=== PATIENT | male | born 1980 ===

== ENCOUNTER 2025-04-11 18:36 | Inpatient (IN) | payer SELFPAY ==
[~2025-04-11 18:36] MED LIST: Iopamidol-370 76% 500 ML MDV (1 ML CHARGE) ONE
[2025-04-11] MEDS ORDERED: KETAMINE 100 MG/ML (5ML VIAL) ONE (18:48)
[2025-04-11] MEDS ORDERED: Propofol 1,000 MG/100 ML VIAL IV ONE (18:54)
[2025-04-11] MEDS ORDERED: fentaNYL Citrate-0.9 % NaCl/PF 100 ML ONE (18:55)
[2025-04-11] MEDS ORDERED: Fentanyl 100 MCG/2 ML VIAL ONE (18:55)
[2025-04-11] MEDS ORDERED: Calcium Chloride 1 GM/10 ML Abboject SYRINGE ONE ×2 (19:10→20:10)
[2025-04-11 19:13] LABS: #Basophils 0.05 10x3/uL (0.0-0.2); #Eosinophils 1.02 10x3/uL (0.0-0.7); #Monocytes 0.37 10x3/uL (0.11-0.59); %Basophils 0.6 % (0.0-1.0); %Lymphocytes 42.6 % (21.0-51.0); %Monocytes 4.4 % (0.0-10.0); Hematocrit 35.2 % (42.0-52.0); Hemoglobin 11.6 g/dL (14.0-18.0); Mean Corpuscular Hemoglobin 30.1 pg (27.0-31.0); Mean Corpuscular Volume 91.4 fL (78.0-98.0); Mean Platelet Volume 8.7 fL (7.4-10.4); Platelet Count 284 10x3/uL (130-400); RBC Distribution Width 13.3 % (11.5-14.5); Red Blood Cell (RBC) Count 3.85 mill/uL (4.70-6.10); White Blood Cell (WBC) Count 8.49 10x3/uL (4.8-10.8)
[2025-04-11 19:29] LABS: INR-International Normal Ratio 1.1; Prothrombin Time 14.4 sec (12.0-14.7)
[2025-04-11 19:32] LABS: Alcohol Less than 10.0 mg/dL (Less than 10); Troponin I Less than 0.010 ng/mL (< 0.028)
[2025-04-11 19:35] LABS: ALT (SGPT) 10 U/L (Less than 45); AST (SGOT) 21 U/L (11-34); Albumin 3.2 g/dL (3.1-4.5); Alkaline Phosphatase 69 U/L (40-110); Anion Gap 18 mmol/L (10-20); BUN (Urea Nitrogen) 16 mg/dL (8.4-25.7); Bilirubin, Total 0.3 mg/dL (0.3-1.2); Calc. Creatinine Clearance 0 mL/min (70-130); Calcium 7.7 mg/dL (7.8-10.44); Carbon Dioxide 13 mmol/L (23-31); Chloride 111 mmol/L (98-107); Estimated GFR 36; Globulin 2.5 g/dL (2.4-3.5); Glucose 238 mg/dL (83-110); Lipase 32 U/L (8-78); Potassium 3.6 mmol/L (3.5-5.1); Protein, Total 5.7 g/dL (5.8-8.1); Sodium 138 mmol/L (136-145)
[2025-04-11] MEDS ORDERED: fentaNYL PF 100 MCG/2 ML SYRINGE ONE (19:42)
[2025-04-11] MEDS ORDERED: Heparin 10,000 UNITS/ 10 ML VIAL ONE (19:56)
[2025-04-11] MEDS ORDERED: Tranexamic Acid 1,000 MG/10 ML VIAL ONE (20:10)
[2025-04-11] MEDS ORDERED: Albumin 5% 500 ML ONE (20:16)
[2025-04-11] MEDS ORDERED: PROPOFOL 20 ML ONE (20:17)
[2025-04-11] MEDS ORDERED: Rocuronium Bromide 10 MG/ML (10ML VIAL) ONE ×2 (20:35)
[2025-04-11] MEDS ORDERED: Dextrose 5% in Water 1,000 ML IV PRN (20:58)
[2025-04-11] MEDS ORDERED: Glucagon 1 MG/ML KIT IM PRN (20:58)
[2025-04-11] MEDS ORDERED: Dextrose 50% Abboject 50 ML SYRINGE SLOW IVP PRN (20:58)
[2025-04-11] MEDS ORDERED: Morphine 4 MG/ML VIAL SLOW IVP PRN (20:58)
[2025-04-11] MEDS ORDERED: Morphine 2 MG/ML VIAL SLOW IVP PRN (20:58)
[2025-04-11] MEDS: diphenhydrAMINE 50 MG/ML VIAL IVP SCH (22:14)
[2025-04-11] MEDS ORDERED: Ventilator Sedation Protocol 1 EACH FS SCH (22:15)
[2025-04-11] MEDS: fentaNYL Citrate-0.9 % NaCl/PF 100 ML IV SCH (22:20)
[2025-04-11] MEDS: Propofol 1,000 MG/100 ML VIAL IV PRN (22:20)
[2025-04-11] MEDS ORDERED: Propofol BOLUS 1,000 MG/100 ML VIAL IV PRN (22:30)
[2025-04-11] MEDS ORDERED: DISCONTINUE PREVIOUS NARCOTIC PAIN MEDICATIONS AND BENZODIAZEPINES FS SCH (22:30)
[2025-04-11] MEDS ORDERED: Fentanyl BOLUS 100 ML IVPB PRN (22:30)
[2025-04-11 22:34] LABS: #Basophils Less than 0.03 10x3/uL (0.0-0.2); #Eosinophils 0.04 10x3/uL (0.0-0.7); #Monocytes Less than 0.03 10x3/uL (0.11-0.59); #Neutrophils 2.15 10x3/uL (1.40-6.50); %Eosinophils 1.6 % (0.0-10.0); %Lymphocytes 11.6 % (21.0-51.0); %Monocytes 0.4 % (0.0-10.0); Hematocrit 41.4 % (42.0-52.0); Hemoglobin 13.9 g/dL (14.0-18.0); Mean Corpuscular HGB CONC 33.6 g/dL (32.0-36.0); Mean Corpuscular Hemoglobin 29.3 pg (27.0-31.0); Mean Corpuscular Volume 87.3 fL (78.0-98.0); Platelet Count 125 10x3/uL (130-400); RBC Distribution Width 14.5 % (11.5-14.5); Red Blood Cell (RBC) Count 4.74 mill/uL (4.70-6.10)
[2025-04-11 22:40] LABS: Platelet Count 124 10x3/uL (130-400)
[2025-04-11 22:46] LABS: Fibrinogen 444 mg/dL (253-463)
[2025-04-11 22:47] LABS: INR-International Normal Ratio 1.1; PTT 31.2 sec (22.9-36.1); Prothrombin Time 14.4 sec (12.0-14.7)
[2025-04-11 22:48] LABS: D-Dimer Test 1.09 mcg/mL (0.27-0.43)
[2025-04-11 22:51] LABS: Lactic Acid 3.37 mmol/L (0.50-2.20)
[2025-04-11 22:55] LABS: ALT (SGPT) 73 U/L (Less than 45); AST (SGOT) 95 U/L (11-34); Albumin 4.1 g/dL (3.1-4.5); Alkaline Phosphatase 75 U/L (40-110); Anion Gap 18 mmol/L (10-20); BUN (Urea Nitrogen) 13 mg/dL (8.4-25.7); Bilirubin, Total 1.7 mg/dL (0.3-1.2); Calc. Creatinine Clearance 0 mL/min (70-130); Calcium 8.8 mg/dL (7.8-10.44); Carbon Dioxide 21 mmol/L (23-31); Chloride 109 mmol/L (98-107); Estimated GFR 58; Glucose 168 mg/dL (83-110); Potassium 3.9 mmol/L (3.5-5.1); Protein, Total 7.1 g/dL (5.8-8.1); Sodium 144 mmol/L (136-145)
[2025-04-11] MEDS: Lorazepam 2 MG/ML VIAL SLOW IVP PRN (23:24)
[2025-04-11] MEDS: methylPREDNISolone Sod Succ 40 MG VIAL IVP SCH (23:24)
[2025-04-11] MEDS: fentaNYL Citrate-0.9 % NaCl/PF 100 ML ONE (23:30)
[2025-04-11] MEDS: diphenhydrAMINE 50 MG/ML VIAL ONE (23:30)
[2025-04-12] MEDS: Mupirocin 1 GM TUBE NASAL DECOLONIZATION TP SCH (00:24)
[2025-04-12] MEDS: Famotidine/PF 20 mg/2ml Vial SLOW IVP SCH (00:24)
[2025-04-12 00:32] LABS: Amphetamine Negative (Negative); Barbiturates Screen Negative (Negative); Benzodiazepine Screen Negative (Negative); Cocaine Metabolite Screen Negative (Negative); Methadone Negative (Negative); Methamphetamine Negative (Negative); Opiate Screen Negative (Negative); Oxycodone Screen Negative (Negative); Phencyclidine (PCP) Negative (Negative); THC/Cannabinoid Screen Negative (Negative); Tricyclic Screen Negative (Negative)
[2025-04-12] MEDS: Midazolam In 0.9 % NaCl/PF 100 ML IVPB SCH (01:05)
[2025-04-12 03:56] LABS: %Basophils 0.2 % (0.0-1.0); %Eosinophils 0.2 % (0.0-10.0); %Lymphocytes 3.6 % (21.0-51.0); %Monocytes 4.4 % (0.0-10.0); %Neutrophils 91.4 % (42.0-75.0); Hematocrit 44.3 % (42.0-52.0); Hemoglobin 15.1 g/dL (14.0-18.0); Mean Corpuscular HGB CONC 34.1 g/dL (32.0-36.0); Mean Platelet Volume 9.2 fL (7.4-10.4); Platelet Count 152 10x3/uL (130-400); RBC Distribution Width 14.6 % (11.5-14.5); Red Blood Cell (RBC) Count 5.21 mill/uL (4.70-6.10); White Blood Cell (WBC) Count 4.78 10x3/uL (4.8-10.8)
[2025-04-12 03:57] LABS: #Basophils Less than 0.03 10x3/uL (0.0-0.2); #Eosinophils Less than 0.03 10x3/uL (0.0-0.7); #Monocytes 0.21 10x3/uL (0.11-0.59); #Neutrophils 4.37 10x3/uL (1.40-6.50)
[2025-04-12 04:10] LABS: INR-International Normal Ratio 1.1; PTT 26.4 sec (22.9-36.1); Prothrombin Time 14.2 sec (12.0-14.7)
[2025-04-12 05:02] LABS: Lactic Acid 3.07 mmol/L (0.50-2.20)
[2025-04-12] MEDS: Piperacillin/Tazobactam 3.375 GM in Sodium Chloride 0.9% 100 ML IVPB SCH ×2 (05:05→07:45)
[2025-04-12 05:10] LABS: ALT (SGPT) 118 U/L (Less than 45); AST (SGOT) 184 U/L (11-34); Alkaline Phosphatase 71 U/L (40-110); Anion Gap 15 mmol/L (10-20); BUN (Urea Nitrogen) 16 mg/dL (8.9-20.6); Bilirubin, Total 2.5 mg/dL (0.3-1.2); Calc. Creatinine Clearance 106 mL/min (70-130); Calcium 8.9 mg/dL (7.8-10.44); Carbon Dioxide 25 mmol/L (22-29); Chloride 107 mmol/L (98-107); Estimated GFR 86; Globulin 3.1 g/dL (2.4-3.5); Glucose 103 mg/dL (70-105); Magnesium 1.5 mg/dL (1.6-2.6); Potassium 3.2 mmol/L (3.5-5.1); Protein, Total 7.1 g/dL (6.0-8.3); Sodium 144 mmol/L (136-145)
[2025-04-12 05:22] LABS: Phosphorus 1.2 mg/dL (2.5-4.5)
[2025-04-12] MEDS: Potassium Chloride 40 MEQ in Premix 1 BAG IVPB SCH (05:48)
[2025-04-12] MEDS: Magnesium Sulfate In Water 4 GM in Premix 1 BAG IVPB SCH (06:24)
[2025-04-12] MEDS: Sodium Phosphate 15 MMOL in Sodium Chloride 0.9% 250 ML 250 ML IVPB SCH (06:25)
[2025-04-12 06:40] LABS: Actual Bicarbonate (HCO3a) 22.5 mEq/L (22-28); Base Excess (BEa) -1.8 mEq/L (-2.0 to +3.0); CO2 Tension 37.1 mmHg (35.0-45.0); Calcium, Ionized (arterial) 1.12 mmol/L (1.12-1.30); Carboxyhemoglobin (COHb) 0.8 gm% (0.0-3.0); Hematocrit-ABG 45 % (42.0-52.0); Hemoglobin (Hb) 15.2 g/dL (14.0-18.0); O2 Tension (PaO2), arterial 237.9 mmHg (80.0-100.0); Potassium - ABG Lab 3.94 mmol/L (3.70-5.30)
[2025-04-12 06:50] LABS: Puncture Site Arterial Line
[2025-04-12] MEDS: Mupirocin 1 GM TUBE NASAL DECOLOIZATION TP SCH (07:44)
[2025-04-12] MEDS: Albumin 5% 250 ML ONE ×3 (13:11→18:43)
[2025-04-12] MEDS: Albumin 5% 25 GM (500 mL) BOT IVPB SCH (13:11)
[2025-04-12] MEDS: Sodium Chloride 0.9% 500 ML IV SCH (13:12)
[2025-04-12 13:32] LABS: ALT (SGPT) 113 U/L (Less than 45); AST (SGOT) 116 U/L (11-34); Albumin 3.6 g/dL (3.1-4.5); Alkaline Phosphatase 46 U/L (40-110); Anion Gap 12 mmol/L (10-20); BUN (Urea Nitrogen) 19 mg/dL (8.9-20.6); Bilirubin, Total 1.7 mg/dL (0.3-1.2); Calc. Creatinine Clearance 116 mL/min (70-130); Calcium 7.9 mg/dL (7.8-10.44); Carbon Dioxide 21 mmol/L (22-29); Chloride 111 mmol/L (98-107); Estimated GFR 95; Globulin 2.5 g/dL (2.4-3.5); Glucose 106 mg/dL (70-105); Potassium 3.9 mmol/L (3.5-5.1); Protein, Total 6.1 g/dL (6.0-8.3); Sodium 140 mmol/L (136-145)
[2025-04-12] MEDS: Acetaminophen 650 MG Suppository PR PRN (17:59)
[2025-04-12] MEDS: NOREPINEPHRINE 8 MG/250 ML-D5W 250 ML ONE (18:43)
[2025-04-12] MEDS: Albumin 5% 12.5 GM (250 mL) BOT IVPB SCH (18:43)
[2025-04-12] MEDS ORDERED: Vasopressin In 0.9 % NaCl 100 ML IV SCH (19:15)
[2025-04-12 19:36] LABS: Hematocrit 35.4 % (42.0-52.0); Hemoglobin 12.3 g/dL (14.0-18.0); Mean Corpuscular HGB CONC 34.7 g/dL (32.0-36.0); Mean Corpuscular Hemoglobin 29.5 pg (27.0-31.0); Mean Corpuscular Volume 84.9 fL (78.0-98.0); Mean Platelet Volume 9.8 fL (7.4-10.4); Platelet Count 147 10x3/uL (130-400); RBC Distribution Width 15.5 % (11.5-14.5); Red Blood Cell (RBC) Count 4.17 mill/uL (4.70-6.10); White Blood Cell (WBC) Count 6.09 10x3/uL (4.8-10.8)
[2025-04-12 19:57] LABS: Anisocytosis SLIGHT = 6-15 cells HPF (0-5); Band 36 % (5-11); Burr Cells SLIGHT = 2-5 cells HPF (0-1); Eosinophils 2 % (0-10); Lymphocytes 7 % (21-51); Monocytes 2 % (0-10); Neutrophil 53 % (42-75); Platelet Adequacy Comment Platelets Normal; Polychromasia SLIGHT = 2-3 cells HPF (0-2); Smudge Cells 3.9 %
[2025-04-13 00:10] LABS: ALT (SGPT) 127 U/L (Less than 45); AST (SGOT) 119 U/L (11-34); Albumin 3.5 g/dL (3.1-4.5); Alkaline Phosphatase 46 U/L (40-110); Anion Gap 10 mmol/L (10-20); BUN (Urea Nitrogen) 18 mg/dL (8.9-20.6); Bilirubin, Total 1.8 mg/dL (0.3-1.2); Calc. Creatinine Clearance 123 mL/min (70-130); Carbon Dioxide 21 mmol/L (22-29); Chloride 113 mmol/L (98-107); Estimated GFR 103; Globulin 2.5 g/dL (2.4-3.5); Glucose 106 mg/dL (70-105); Potassium 3.8 mmol/L (3.5-5.1); Sodium 140 mmol/L (136-145)
[2025-04-13 05:00] LABS: Hematocrit 39.3 % (42.0-52.0); Hemoglobin 13.5 g/dL (14.0-18.0); Mean Corpuscular HGB CONC 34.4 g/dL (32.0-36.0); Mean Corpuscular Hemoglobin 29.3 pg (27.0-31.0); Mean Corpuscular Volume 85.2 fL (78.0-98.0); Mean Platelet Volume 9.7 fL (7.4-10.4); Platelet Count 149 10x3/uL (130-400); RBC Distribution Width 15.5 % (11.5-14.5); Red Blood Cell (RBC) Count 4.61 mill/uL (4.70-6.10); White Blood Cell (WBC) Count 7.08 10x3/uL (4.8-10.8)
[2025-04-13 05:46] LABS: ALT (SGPT) 131 U/L (Less than 45); AST (SGOT) 112 U/L (11-34); Albumin 3.6 g/dL (3.1-4.5); Alkaline Phosphatase 50 U/L (40-110); Anion Gap 10 mmol/L (10-20); BUN (Urea Nitrogen) 17 mg/dL (8.9-20.6); Bilirubin, Total 1.8 mg/dL (0.3-1.2); Calc. Creatinine Clearance 128 mL/min (70-130); Calcium 8.6 mg/dL (7.8-10.44); Carbon Dioxide 21 mmol/L (22-29); Chloride 112 mmol/L (98-107); Estimated GFR 105; Globulin 2.9 g/dL (2.4-3.5); Glucose 126 mg/dL (70-105); Protein, Total 6.5 g/dL (6.0-8.3); Sodium 139 mmol/L (136-145)
[2025-04-13 07:01] LABS: Anisocytosis SLIGHT = 6-15 cells HPF (0-5); Band 53 % (5-11); Eosinophils 1 % (0-10); Lymphocytes 2 % (21-51); Macrocytosis SLIGHT = 6-15 cells HPF (0-5); Monocytes 5 % (0-10); Neutrophil 39 % (42-75); Platelet Adequacy Comment Platelets Normal
[2025-04-13] MEDS ORDERED: Rocuronium Bromide 10 MG/ML (10ML VIAL) ONE (12:43)
[2025-04-13] MEDS ORDERED: PHENYLEPHRINE-NS 100 MCG/ML 10 ML SYRINGE ONE (12:43)
[2025-04-13] MEDS ORDERED: PROPOFOL 20 ML ONE (12:43)
[2025-04-13] MEDS ORDERED: fentaNYL PF 100 MCG/2 ML SYRINGE ONE (12:43)
[2025-04-13] MEDS ORDERED: ePHEDrine Sulfate 50 MG/10 ML VIAL ONE (12:43)
[2025-04-13] MEDS: NOREPINEPHRINE 8 MG/250 ML-D5W 250 ML IVPB SCH (16:58)
[2025-04-14 04:49] LABS: Hematocrit 40.7 % (42.0-52.0); Hemoglobin 13.7 g/dL (14.0-18.0); Mean Corpuscular HGB CONC 33.7 g/dL (32.0-36.0); Mean Corpuscular Hemoglobin 29.3 pg (27.0-31.0); Mean Corpuscular Volume 87.2 fL (78.0-98.0); Mean Platelet Volume 9.7 fL (7.4-10.4); Platelet Count 162 10x3/uL (130-400); RBC Distribution Width 15.6 % (11.5-14.5); Red Blood Cell (RBC) Count 4.67 mill/uL (4.70-6.10); White Blood Cell (WBC) Count 5.85 10x3/uL (4.8-10.8)
[2025-04-14 05:01] LABS: ALT (SGPT) 87 U/L (Less than 45); AST (SGOT) 48 U/L (11-34); Alkaline Phosphatase 44 U/L (40-110); Anion Gap 11 mmol/L (10-20); BUN (Urea Nitrogen) 17 mg/dL (8.9-20.6); Calc. Creatinine Clearance 110 mL/min (70-130); Calcium 8.7 mg/dL (7.8-10.44); Carbon Dioxide 20 mmol/L (22-29); Chloride 114 mmol/L (98-107); Estimated GFR 88; Globulin 3.4 g/dL (2.4-3.5); Glucose 159 mg/dL (70-105); Potassium 4.5 mmol/L (3.5-5.1); Protein, Total 6.4 g/dL (6.0-8.3); Sodium 140 mmol/L (136-145)
[2025-04-14 06:16] LABS: Band 28 % (5-11); Burr Cells SLIGHT = 2-5 cells HPF (0-1); Lymphocytes 7 % (21-51); Monocytes 4 % (0-10); Neutrophil 61 % (42-75); Platelet Adequacy Comment Platelets Normal
[2025-04-14] MEDS: Enoxaparin 40 MG (0.4 mL) SYRINGE SC SCH (08:01)
[2025-04-14 10:31] VITALS: BMI 32.8
[2025-04-15 05:24] LABS: #Basophils Less than 0.03 10x3/uL (0.0-0.2); #Eosinophils Less than 0.03 10x3/uL (0.0-0.7); #Monocytes 0.39 10x3/uL (0.11-0.59); #Neutrophils 4.73 10x3/uL (1.40-6.50); %Eosinophils 0.2 % (0.0-10.0); %Lymphocytes 10.1 % (21.0-51.0); %Monocytes 6.8 % (0.0-10.0); %Neutrophils 82.2 % (42.0-75.0); Hematocrit 38.6 % (42.0-52.0); Hemoglobin 12.9 g/dL (14.0-18.0); Mean Corpuscular HGB CONC 33.4 g/dL (32.0-36.0); Mean Corpuscular Hemoglobin 29.5 pg (27.0-31.0); Mean Corpuscular Volume 88.1 fL (78.0-98.0); Mean Platelet Volume 9.8 fL (7.4-10.4); Platelet Count 172 10x3/uL (130-400); RBC Distribution Width 15.1 % (11.5-14.5); Red Blood Cell (RBC) Count 4.38 mill/uL (4.70-6.10); White Blood Cell (WBC) Count 5.75 10x3/uL (4.8-10.8)
[2025-04-15 05:39] LABS: Anion Gap 16 mmol/L (10-20); BUN (Urea Nitrogen) 24 mg/dL (8.9-20.6); Calc. Creatinine Clearance 129 mL/min (70-130); Carbon Dioxide 20 mmol/L (22-29); Chloride 111 mmol/L (98-107); Estimated GFR 109; Glucose 147 mg/dL (70-105); Potassium 4.3 mmol/L (3.5-5.1); Sodium 143 mmol/L (136-145)
[2025-04-15] MEDS: Dextrose 5%-Lactated Ringers 1,000 ML IV SCH (08:47)
[2025-04-15] MEDS ORDERED: Rocuronium Bromide 10 MG/ML (10ML VIAL) ONE ×2 (12:02→13:57)
[2025-04-15] MEDS ORDERED: PHENYLEPHRINE-NS 100 MCG/ML 10 ML SYRINGE ONE (12:02)
[2025-04-15] MEDS ORDERED: ePHEDrine Sulfate 50 MG/10 ML VIAL ONE (12:02)
[2025-04-15] MEDS ORDERED: Midazolam HCl 2 mg/2 ml Vial ONE (12:03)
[2025-04-15] MEDS ORDERED: PROPOFOL 20 ML ONE (12:03)
[2025-04-15] MEDS ORDERED: Ondansetron PF 4 MG/2 ML Vial ONE (12:49)
[2025-04-15] MEDS ORDERED: Dexamethasone 4 mg/ml Vial ONE (12:51)
[2025-04-15] MEDS ORDERED: CEFAZOLIN 1 GM VIAL ONE (12:55)
[2025-04-15] MEDS ORDERED: fentaNYL PF 100 MCG/2 ML SYRINGE ONE (13:04)
[2025-04-15] MEDS ORDERED: Dextrose 50% Abboject 50 ML SYRINGE SLOW IVP PRN (14:12)
[2025-04-15] MEDS ORDERED: Dextrose 5% in Water 1,000 ML IV PRN (14:12)
[2025-04-15] MEDS ORDERED: Glucagon 1 MG/ML KIT IM PRN (14:12)
[2025-04-15] MEDS ORDERED: Ondansetron PF 4 MG/2 ML Vial IVP PRN (14:12)
[2025-04-15] MEDS: D5 1/2 NS w/20 mEq KCL 1,000 ML IV SCH (15:53)
[2025-04-15] MEDS: Famotidine 20 MG TAB PO SCH (20:44)
[2025-04-15] MEDS: Docusate 100 MG CAP PO SCH (20:47)
[2025-04-16] MEDS: Dexmedetomidine In 0.9 % NaCl 100 ML IVPB SCH (01:23)
[2025-04-16 04:15] LABS: #Basophils Less than 0.03 10x3/uL (0.0-0.2); #Eosinophils Less than 0.03 10x3/uL (0.0-0.7); #Monocytes 0.45 10x3/uL (0.11-0.59); #Neutrophils 6.75 10x3/uL (1.40-6.50); %Basophils 0.1 % (0.0-1.0); %Lymphocytes 5.7 % (21.0-51.0); %Monocytes 5.8 % (0.0-10.0); %Neutrophils 87.4 % (42.0-75.0); Hematocrit 37.8 % (42.0-52.0); Hemoglobin 12.5 g/dL (14.0-18.0); Mean Corpuscular HGB CONC 33.1 g/dL (32.0-36.0); Mean Corpuscular Hemoglobin 29.2 pg (27.0-31.0); Mean Corpuscular Volume 88.3 fL (78.0-98.0); Mean Platelet Volume 9.2 fL (7.4-10.4); Platelet Count 193 10x3/uL (130-400); RBC Distribution Width 14.8 % (11.5-14.5); Red Blood Cell (RBC) Count 4.28 mill/uL (4.70-6.10); White Blood Cell (WBC) Count 7.73 10x3/uL (4.8-10.8)
[2025-04-16 05:24] LABS: Anion Gap 11 mmol/L (10-20); BUN (Urea Nitrogen) 20 mg/dL (8.9-20.6); Calc. Creatinine Clearance 145 mL/min (70-130); Carbon Dioxide 18 mmol/L (22-29); Chloride 114 mmol/L (98-107); Estimated GFR 113; Glucose 147 mg/dL (70-105); Potassium 4.4 mmol/L (3.5-5.1); Sodium 139 mmol/L (136-145)
[2025-04-16 06:08] LABS: Calcium 8.5 mg/dL (7.8-10.44)
[2025-04-16] MEDS: Enoxaparin 40 MG (0.4 mL) SYRINGE SC SCH (08:03)
[2025-04-16] MEDS: QUEtiapine 100 MG TAB PO SCH (09:19)
[2025-04-16] MEDS: Amlodipine 5 MG TAB PO SCH (16:57)
[2025-04-17 05:04] LABS: Hematocrit 40.3 % (42.0-52.0); Hemoglobin 13.4 g/dL (14.0-18.0); Mean Corpuscular HGB CONC 33.3 g/dL (32.0-36.0); Mean Corpuscular Hemoglobin 29.6 pg (27.0-31.0); Mean Platelet Volume 9.4 fL (7.4-10.4); Platelet Count 234 10x3/uL (130-400); RBC Distribution Width 13.6 % (11.5-14.5); Red Blood Cell (RBC) Count 4.53 mill/uL (4.70-6.10); White Blood Cell (WBC) Count 8.81 10x3/uL (4.8-10.8)
[2025-04-17 05:05] LABS: Anion Gap 14 mmol/L (10-20); BUN (Urea Nitrogen) 15 mg/dL (8.9-20.6); Calc. Creatinine Clearance 157 mL/min (70-130); Calcium 8.6 mg/dL (7.8-10.44); Carbon Dioxide 20 mmol/L (22-29); Chloride 106 mmol/L (98-107); Estimated GFR 116; Glucose 155 mg/dL (70-105); Potassium 4.6 mmol/L (3.5-5.1); Sodium 135 mmol/L (136-145)
[2025-04-17 05:40] LABS: Band 1 % (5-11); Lymphocytes 14 % (21-51); Monocytes 8 % (0-10); Neutrophil 77 % (42-75); Platelet Adequacy Comment Platelets Normal; RBC Morphology Within Normal Limits
[2025-04-17] MEDS: Amlodipine 5 MG TAB PO SCH (08:49)
[2025-04-17] MEDS: Docusate Sodium 100 MG/10 ML UDCUP PO SCH (20:15)
[2025-04-18] MEDS: Haloperidol Lactate 5 MG/ML VIAL SLOW IVP PRN (09:57)
[2025-04-18] MEDS: Morphine 4 MG/ML VIAL SLOW IVP PRN (21:20)
[2025-04-19 05:53] LABS: ALT (SGPT) 107 U/L (Less than 45); AST (SGOT) 66 U/L (11-34); Albumin 2.6 g/dL (3.1-4.5); Alkaline Phosphatase 92 U/L (40-110); Anion Gap 13 mmol/L (10-20); BUN (Urea Nitrogen) 15 mg/dL (8.9-20.6); Bilirubin, Total 1.3 mg/dL (0.3-1.2); Calc. Creatinine Clearance 169 mL/min (70-130); Calcium 8.8 mg/dL (7.8-10.44); Carbon Dioxide 23 mmol/L (22-29); Chloride 105 mmol/L (98-107); Estimated GFR 118; Globulin 3.8 g/dL (2.4-3.5); Glucose 152 mg/dL (70-105); Potassium 4.4 mmol/L (3.5-5.1); Protein, Total 6.4 g/dL (6.0-8.3); Sodium 137 mmol/L (136-145)
[2025-04-19 05:55] LABS: Hematocrit 43.9 % (42.0-52.0); Hemoglobin 14.9 g/dL (14.0-18.0); Mean Corpuscular HGB CONC 33.9 g/dL (32.0-36.0); Mean Corpuscular Hemoglobin 28.5 pg (27.0-31.0); Mean Corpuscular Volume 84.1 fL (78.0-98.0); Mean Platelet Volume 9.1 fL (7.4-10.4); Platelet Count 395 10x3/uL (130-400); RBC Distribution Width 13.2 % (11.5-14.5); Red Blood Cell (RBC) Count 5.22 mill/uL (4.70-6.10)
[2025-04-19 06:35] LABS: Band 3 % (5-11); Eosinophils 1 % (0-10); Lymphocytes 5 % (21-51); Monocytes 12 % (0-10); Neutrophil 80 % (42-75); Platelet Adequacy Comment Platelets Normal; RBC Morphology Within Normal Limits; Smudge Cells 4.9 %
[2025-04-19] MEDS: QUEtiapine 25 MG TAB PO SCH (10:22)
[2025-04-19] MEDS: methylPREDNISolone Sod Succ 40 MG VIAL IVP SCH (10:24)
[2025-04-19] MEDS: HYDROcodone/Acetaminophen 10/325 mg Tablet PO PRN (14:58)
[2025-04-19] MEDS: DC Sedation Protocol FS ONE (21:01)
[2025-04-19] MEDS: Ondansetron PF 4 MG/2 ML Vial IVP PRN (21:47)
[2025-04-20] MEDS: Morphine 2 MG/ML VIAL SLOW IVP PRN (01:14)
[2025-04-20] MEDS: Albumin 5% 12.5 GM (250 mL) BOT IVPB SCH (01:14)
[2025-04-20 04:31] LABS: #Basophils 0.06 10x3/uL (0.0-0.2); #Eosinophils 0.17 10x3/uL (0.0-0.7); #Monocytes 1.01 10x3/uL (0.11-0.59); #Neutrophils 15.58 10x3/uL (1.40-6.50); %Basophils 0.3 % (0.0-1.0); %Eosinophils 0.9 % (0.0-10.0); %Lymphocytes 5.5 % (21.0-51.0); %Monocytes 5.4 % (0.0-10.0); %Neutrophils 83.3 % (42.0-75.0); Hematocrit 41.9 % (42.0-52.0); Hemoglobin 14.3 g/dL (14.0-18.0); Mean Corpuscular HGB CONC 34.1 g/dL (32.0-36.0); Mean Corpuscular Hemoglobin 29.5 pg (27.0-31.0); Mean Corpuscular Volume 86.4 fL (78.0-98.0); Mean Platelet Volume 8.8 fL (7.4-10.4); Platelet Count 496 10x3/uL (130-400); RBC Distribution Width 13.6 % (11.5-14.5); Red Blood Cell (RBC) Count 4.85 mill/uL (4.70-6.10); White Blood Cell (WBC) Count 18.71 10x3/uL (4.8-10.8)
[2025-04-20 04:55] LABS: ALT (SGPT) 91 U/L (Less than 45); AST (SGOT) 39 U/L (11-34); Albumin 2.9 g/dL (3.1-4.5); Alkaline Phosphatase 105 U/L (40-110); Anion Gap 14 mmol/L (10-20); BUN (Urea Nitrogen) 19 mg/dL (8.9-20.6); Bilirubin, Total 2.4 mg/dL (0.3-1.2); Calc. Creatinine Clearance 116 mL/min (70-130); Calcium 8.6 mg/dL (7.8-10.44); Carbon Dioxide 22 mmol/L (22-29); Chloride 109 mmol/L (98-107); Estimated GFR 103; Globulin 3.5 g/dL (2.4-3.5); Glucose 145 mg/dL (70-105); Potassium 3.9 mmol/L (3.5-5.1); Protein, Total 6.4 g/dL (6.0-8.3); Sodium 141 mmol/L (136-145)
[2025-04-20] MEDS: methylPREDNISolone Sod Succ 40 MG VIAL IVP SCH (07:40)
[2025-04-20] MEDS ORDERED: Iopamidol-370 76% 500 ML MDV (1 ML CHARGE) ONE (10:07)
[2025-04-21] MEDS ORDERED: Bacitracin Zinc Ointment 30 gm TUBE ONE (06:18)
[2025-04-21] MEDS ORDERED: Bupivacaine PF 0.5% 30 ML VIAL ONE (06:18)
[2025-04-21] MEDS ORDERED: PROPOFOL 20 ML ONE (07:08)
[2025-04-21] MEDS ORDERED: fentaNYL PF 100 MCG/2 ML SYRINGE ONE ×4 (07:08→14:15)
[2025-04-21] MEDS ORDERED: Lidocaine 1% PF 5 ML VIAL ONE (07:09)
[2025-04-21] MEDS ORDERED: SUCCINYLCHOLINE/SOD CL,ISO/PF 200 MG/10 ML SYRINGE FS ONE (07:10)
[2025-04-21] MEDS ORDERED: Glycopyrrolate 0.2 MG/ML 5 ML SYRINGE ONE (07:10)
[2025-04-21] MEDS ORDERED: ePHEDrine Sulfate 50 MG/10 ML VIAL ONE (07:11)
[2025-04-21 07:41] LABS: #Basophils 0.04 10x3/uL (0.0-0.2); #Eosinophils 0.17 10x3/uL (0.0-0.7); #Monocytes 1.04 10x3/uL (0.11-0.59); #Neutrophils 10.52 10x3/uL (1.40-6.50); %Basophils 0.3 % (0.0-1.0); %Eosinophils 1.3 % (0.0-10.0); %Lymphocytes 8.4 % (21.0-51.0); %Monocytes 7.8 % (0.0-10.0); %Neutrophils 78.6 % (42.0-75.0); Hematocrit 42.1 % (42.0-52.0); Hemoglobin 14.2 g/dL (14.0-18.0); Mean Corpuscular HGB CONC 33.7 g/dL (32.0-36.0); Mean Corpuscular Hemoglobin 29.6 pg (27.0-31.0); Mean Corpuscular Volume 87.9 fL (78.0-98.0); Mean Platelet Volume 8.6 fL (7.4-10.4); Platelet Count 539 10x3/uL (130-400); RBC Distribution Width 14.2 % (11.5-14.5); Red Blood Cell (RBC) Count 4.79 mill/uL (4.70-6.10); White Blood Cell (WBC) Count 13.37 10x3/uL (4.8-10.8)
[2025-04-21 08:00] LABS: ALT (SGPT) 74 U/L (Less than 45); AST (SGOT) 40 U/L (11-34); Alkaline Phosphatase 120 U/L (40-110); Anion Gap 13 mmol/L (10-20); BUN (Urea Nitrogen) 14 mg/dL (8.9-20.6); Bilirubin, Direct 0.5 mg/dL (0.1-0.3); Bilirubin, Total 1.4 mg/dL (0.3-1.2); Calc. Creatinine Clearance 150 mL/min (70-130); Calcium 8.8 mg/dL (7.8-10.44); Carbon Dioxide 22 mmol/L (22-29); Chloride 108 mmol/L (98-107); Estimated GFR 116; Globulin 3.6 g/dL (2.4-3.5); Glucose 141 mg/dL (70-105); Protein, Total 6.6 g/dL (6.0-8.3); Sodium 139 mmol/L (136-145)
[2025-04-21] MEDS ORDERED: Ondansetron PF 4 MG/2 ML Vial ONE (08:34)
[2025-04-21] MEDS ORDERED: PHENYLEPHRINE-NS 100 MCG/ML 10 ML SYRINGE ONE (08:39)
[2025-04-21] MEDS ORDERED: HYDROmorphone 2 MG/ML VIAL ONE (10:02)
[2025-04-21] MEDS ORDERED: fentaNYL 50 mcg/mL 1 mL Vial ONE (10:11)
[2025-04-21] MEDS ORDERED: Rocuronium Bromide 10 MG/ML (10ML VIAL) ONE (10:22)
[2025-04-21] MEDS ORDERED: Vancomycin 1 GM VIAL ONE (10:50)
[2025-04-21] MEDS ORDERED: CEFAZOLIN 2 GM VIAL ONE (11:49)
[2025-04-21] MEDS ORDERED: SUGAMMADEX SODIUM 200 MG/2 ML VIAL ONE (12:58)
[2025-04-21] MEDS ORDERED: Promethazine HCl 25 MG/ML VIAL ONE (13:44)
[2025-04-21] MEDS ORDERED: HYDROmorphone 0.5 MG/0.5 ML SYRINGE ONE (13:55)
[2025-04-21] MEDS ORDERED: Labetalol HCl 100 MG/20 ML VIAL ONE (14:13)
[2025-04-21] MEDS: hydrALAZINE 20 MG/ML VIAL SLOW IVP PRN (15:15)
[2025-04-21] MEDS ORDERED: Morphine 4 MG/ML VIAL SLOW IVP PRN (16:01)
[2025-04-21] MEDS: Morphine 4 MG/ML VIAL SLOW IVP SCH (16:19)
[2025-04-21] MEDS: fentaNYL 50 mcg/mL 1 mL Vial ONE (17:14)
[2025-04-21] MEDS: fentaNYL 50 mcg/mL 1 mL Vial SLOW IVP PRN (18:10)
[2025-04-22 05:10] LABS: #Basophils 0.03 10x3/uL (0.0-0.2); #Eosinophils 0.19 10x3/uL (0.0-0.7); #Monocytes 1.11 10x3/uL (0.11-0.59); #Neutrophils 13.35 10x3/uL (1.40-6.50); %Basophils 0.2 % (0.0-1.0); %Eosinophils 1.1 % (0.0-10.0); %Monocytes 6.7 % (0.0-10.0); %Neutrophils 80.4 % (42.0-75.0); Hematocrit 39.1 % (42.0-52.0); Hemoglobin 12.9 g/dL (14.0-18.0); Mean Corpuscular Hemoglobin 29.2 pg (27.0-31.0); Mean Corpuscular Volume 88.5 fL (78.0-98.0); Mean Platelet Volume 8.4 fL (7.4-10.4); Platelet Count 513 10x3/uL (130-400); RBC Distribution Width 14.4 % (11.5-14.5); Red Blood Cell (RBC) Count 4.42 mill/uL (4.70-6.10); White Blood Cell (WBC) Count 16.62 10x3/uL (4.8-10.8)
[2025-04-22 05:27] LABS: ALT (SGPT) 47 U/L (Less than 45); AST (SGOT) 26 U/L (11-34); Albumin 2.8 g/dL (3.1-4.5); Alkaline Phosphatase 107 U/L (40-110); Anion Gap 10 mmol/L (10-20); BUN (Urea Nitrogen) 14 mg/dL (8.9-20.6); Bilirubin, Total 1.4 mg/dL (0.3-1.2); Calc. Creatinine Clearance 124 mL/min (70-130); Calcium 8.4 mg/dL (7.8-10.44); Carbon Dioxide 22 mmol/L (22-29); Chloride 109 mmol/L (98-107); Estimated GFR 110; Globulin 3.4 g/dL (2.4-3.5); Glucose 111 mg/dL (70-105); Potassium 3.8 mmol/L (3.5-5.1); Protein, Total 6.2 g/dL (6.0-8.3); Sodium 137 mmol/L (136-145)
[2025-04-22] MEDS: D5 1/2 NS w/20 mEq KCL 1,000 ML IV SCH (12:26)
[2025-04-23 08:02] LABS: #Basophils 0.03 10x3/uL (0.0-0.2); #Monocytes 0.91 10x3/uL (0.11-0.59); #Neutrophils 7.81 10x3/uL (1.40-6.50); %Basophils 0.3 % (0.0-1.0); %Eosinophils 2.8 % (0.0-10.0); %Lymphocytes 11.4 % (21.0-51.0); %Monocytes 8.6 % (0.0-10.0); %Neutrophils 74.2 % (42.0-75.0); Hematocrit 41.9 % (42.0-52.0); Hemoglobin 14.1 g/dL (14.0-18.0); Mean Corpuscular HGB CONC 33.7 g/dL (32.0-36.0); Mean Corpuscular Hemoglobin 29.4 pg (27.0-31.0); Mean Corpuscular Volume 87.5 fL (78.0-98.0); Mean Platelet Volume 8.5 fL (7.4-10.4); Platelet Count 593 10x3/uL (130-400); RBC Distribution Width 13.9 % (11.5-14.5); Red Blood Cell (RBC) Count 4.79 mill/uL (4.70-6.10); White Blood Cell (WBC) Count 10.53 10x3/uL (4.8-10.8)
[2025-04-23 08:06] LABS: Anion Gap 14 mmol/L (10-20); BUN (Urea Nitrogen) 11 mg/dL (8.9-20.6); Calc. Creatinine Clearance 145 mL/min (70-130); Carbon Dioxide 22 mmol/L (22-29); Chloride 103 mmol/L (98-107); Estimated GFR 116; Glucose 116 mg/dL (70-105); Potassium 3.9 mmol/L (3.5-5.1); Sodium 135 mmol/L (136-145)
[2025-04-23] MEDS: traMADol HCl 50 MG TAB PO PRN (15:51)
[2025-04-24 05:36] LABS: #Basophils 0.07 10x3/uL (0.0-0.2); #Eosinophils 0.33 10x3/uL (0.0-0.7); #Monocytes 0.88 10x3/uL (0.11-0.59); #Neutrophils 6.69 10x3/uL (1.40-6.50); %Basophils 0.7 % (0.0-1.0); %Eosinophils 3.3 % (0.0-10.0); %Lymphocytes 16.3 % (21.0-51.0); %Monocytes 8.8 % (0.0-10.0); %Neutrophils 67.3 % (42.0-75.0); Hematocrit 42.5 % (42.0-52.0); Hemoglobin 14.2 g/dL (14.0-18.0); Mean Corpuscular HGB CONC 33.4 g/dL (32.0-36.0); Mean Corpuscular Volume 86.9 fL (78.0-98.0); Mean Platelet Volume 8.6 fL (7.4-10.4); Platelet Count 614 10x3/uL (130-400); RBC Distribution Width 13.7 % (11.5-14.5); Red Blood Cell (RBC) Count 4.89 mill/uL (4.70-6.10); White Blood Cell (WBC) Count 9.95 10x3/uL (4.8-10.8)
[2025-04-24] MEDS: QUEtiapine 25 MG TAB PO SCH (20:13)
[2025-04-27 06:48] LABS: #Basophils 0.07 10x3/uL (0.0-0.2); #Eosinophils 0.23 10x3/uL (0.0-0.7); #Monocytes 0.62 10x3/uL (0.11-0.59); #Neutrophils 4.65 10x3/uL (1.40-6.50); %Eosinophils 3.1 % (0.0-10.0); %Lymphocytes 21.6 % (21.0-51.0); %Monocytes 8.4 % (0.0-10.0); %Neutrophils 63.2 % (42.0-75.0); Hematocrit 40.2 % (42.0-52.0); Hemoglobin 13.3 g/dL (14.0-18.0); Mean Corpuscular HGB CONC 33.1 g/dL (32.0-36.0); Mean Corpuscular Hemoglobin 29.6 pg (27.0-31.0); Mean Corpuscular Volume 89.3 fL (78.0-98.0); Mean Platelet Volume 8.5 fL (7.4-10.4); Platelet Count 554 10x3/uL (130-400); RBC Distribution Width 13.5 % (11.5-14.5); White Blood Cell (WBC) Count 7.36 10x3/uL (4.8-10.8)
[2025-04-27 07:03] LABS: ALT (SGPT) 49 U/L (Less than 45); AST (SGOT) 39 U/L (11-34); Albumin 3.1 g/dL (3.1-4.5); Alkaline Phosphatase 116 U/L (40-110); Anion Gap 11 mmol/L (10-20); BUN (Urea Nitrogen) 13 mg/dL (8.9-20.6); Bilirubin, Total 0.8 mg/dL (0.3-1.2); Calc. Creatinine Clearance 126 mL/min (70-130); Calcium 8.7 mg/dL (7.8-10.44); Carbon Dioxide 23 mmol/L (22-29); Chloride 106 mmol/L (98-107); Estimated GFR 113; Globulin 3.7 g/dL (2.4-3.5); Glucose 100 mg/dL (70-105); Lipase 218 U/L (8-78); Potassium 3.5 mmol/L (3.5-5.1); Protein, Total 6.8 g/dL (6.0-8.3); Sodium 136 mmol/L (136-145)
[2025-04-27 11:06] VITALS: BP 99/56; TEMP 97.9
[2025-04-27] MEDS ORDERED: Electrolyte Replacement Protocol FS PRN (13:30)
[2025-04-27] MEDS: Potassium Chloride 20 MEQ TAB PO SCH (15:07)
[2025-04-27 16:02] VITALS: BMI 28.7
== END 2025-04-27 16:21 | DRG 957 ==
LOC: ERS 18:36 → SDC 19:27 → EDBD 20:58 → EEVIPCON 20:58 → CCU 20:58 → SURG A 04-23 15:45
PROVIDERS: ADMIT Surgery Trauma Surgery; ATTEND Surgery Trauma Surgery
PROC: 0DBL0ZZ Excision of Transverse Colon, Open Approach (ICD-10-PCS; principal; 2025-04-11)
PROC: 30233N1 Transfusion of Nonautologous Red Blood Cells into Peripheral Vein, Percutaneous Approach (ICD-10-PCS; principal; 2025-04-11)
PROC: 03L Upper Arteries, Occlusion (ICD-10-PCS; principal; 2025-04-11)
PROC: 0W3P0ZZ Control Bleeding in Gastrointestinal Tract, Open Approach (ICD-10-PCS; principal; 2025-04-11)
PROC: 0DQV0ZZ Repair Mesentery, Open Approach (ICD-10-PCS; principal; 2025-04-11)
PROC: 5A1955Z Respiratory Ventilation, Greater than 96 Consecutive Hours (ICD-10-PCS; 2025-04-11)
PROC: 02HV33Z Insertion of Infusion Device into Superior Vena Cava, Percutaneous Approach (ICD-10-PCS; 2025-04-12)
PROC: 0KQ20ZZ Repair Right Neck Muscle, Open Approach (ICD-10-PCS; 2025-04-12)
PROC: 0DB90ZZ Excision of Duodenum, Open Approach (ICD-10-PCS; 2025-04-14)
PROC: 05HD33Z Insertion of Infusion Device into Right Cephalic Vein, Percutaneous Approach (ICD-10-PCS; 2025-04-23)
PROC: 0KNC0ZZ Release Right Hand Muscle, Open Approach (ICD-10-PCS; 2025-04-24)
PROC: 01Q60ZZ Repair Radial Nerve, Open Approach (ICD-10-PCS; 2025-04-24)
DX: S62.393B Other fracture of third metacarpal bone, left hand, initial encounter for open fracture (principal); G93.41 Metabolic encephalopathy; S36.113A Laceration of liver, unspecified degree, initial encounter; S64.22XA Injury of radial nerve at wrist and hand level of left arm, initial encounter; J96.01 Acute respiratory failure with hypoxia; R57.1 Hypovolemic shock; J90 Pleural effusion, not elsewhere classified; S62.616B Displaced fracture of proximal phalanx of right little finger, initial encounter for open fracture; D68.9 Coagulation defect, unspecified; S15.1 Injury of vertebral artery; S66.328A Laceration of extensor muscle, fascia and tendon of other finger at wrist and hand level, initial encounter; J98.11 Atelectasis; S36.892A Contusion of other intra-abdominal organs, initial encounter; S11.91XA Laceration without foreign body of unspecified part of neck, initial encounter; R79.89 Other specified abnormal findings of blood chemistry; Z65.2 Problems related to release from prison; W26.0XXA Contact with knife, initial encounter
CPT/HCPCS: 31500; 36415; 36416; 36430; 36556; 70496; 70498; 71045; 71260; 74018; 74176; 74177; 80048; 80053; 80306; 80307; 82247; 82330; 82805; 83605; 83690; 83735; 84100; 84145; 84484; 85025; 85049; 85300; 85362; 85384; 85610; 85730; 86850; 86900; 86901; 87040; 87071; 88305; 88307; 93970; 94002; 94003; 94760; 96374; 97139; A4314; A4649; C1713; C9250-JZ; G0390; J0360; J0665; J0690; J1100; J1171; J1200; J1630; J1644; J1650; J2060; J2250; J2270; J2272; J2405; J2543; J2550; J2704; J2919; J3010; J3370; J3475; J3480; J3490; J7030; J7050; P9012; P9016; P9035; P9045; P9048; P9059; Q9967